=== PATIENT | female | born 1980 | race Caucasian/White ===

== ENCOUNTER → 2016-02-29 | Outpatient (CLI) | payer BC ==
[~2016-02-29] MED LIST: PRENTAB26 PO
== END | disposition home or self-care (01) ==
LOC: C.PAPS 15:21
PROVIDERS: ATTEND Obstetrics & Gynecology
DX: Z01.419 Encounter for gynecological examination (general) (routine) without abnormal findings (principal)

== ENCOUNTER → 2016-03-14 | Outpatient (CLI) | payer BC ==
--- NOTE | 2016-03-14 12:43 | MAMMOGRAPHY REPORT ---
ULTRASOUND OF RIGHT BREAST: 03/14/2016 CLINICAL HISTORY: The patient is currently breast-feeding, and reports a palpable lump in the right breast since before [place]. The lump is more noticeable before pumping or breast-feeding. COMPARISON: No prior exams were available for comparison. TECHNIQUE: Real-time targeted ultrasound of the right breast was performed. Mammograms were perfor med as the patient is breast-feeding. FINDINGS: Real-time, high resolution targeted ultrasound was performed of the area of the palpable lump pointe d out by the patient, in the right breast at approximately 10:00, 6 cm from the nipple (with the pat ient's arms down). Expected lactational changes are noted in this region, without evidence of a julien picious mass or other suspicious sonographic abnormality. IMPRESSION: ACR BI-RADS CATEGORY 2: BENIGN Expected lactational changes without evidence of a suspicious abnormality at the site of the palpabl e right breast lump. There is no sonographic evidence of malignancy. Recommend clinical follow-up; the patient was advised to monitor the lump and return to her doctor if the lump increased. The bryce carl was verbally notified of the results. Kaley Manley M.D. /:03/14/2016 09:47:06 Scalp Treatment Operator: Kaley Manley MD, [facility] letter sent: Normal 1/2 BI-RADS Code: ACR BI-RADS Category 2: Benign
== END | disposition home or self-care (01) ==
LOC: C.MAMM 08:58
PROVIDERS: ATTEND Obstetrics & Gynecology
DX: N63 Unspecified lump in breast (principal)